=== PATIENT | female | born 1985 | race Caucasian/White ===

== ENCOUNTER 2016-06-21 16:26 | Emergency (ER) | payer SELFPAY ==
[2016-06-21 16:53] VITALS: BP 134/85
--- NOTE | 2016-06-21 17:07 | UC ---
Complaint Female HPI - HPI Summary HPI Summary: complaint of pain with urination that started approx 10 days ago increase in urgency and frequency can't express much urine walking up to urinate constantly during the night started to have lower abdominal pain today-slight achiness today the pain has increased and radited into right flank -intermittent denies fever but has felt some chills taking ibuprofen without relief denies N/V/D,/C, no blood in stool, last BM last night normal LMP- 2 years ago on depo shot - History Of Current Complaint Hx Obtained From: Patient Hx Last Menstrual Period: Depo provera <Mirta Snow - Last Filed: 06/21/16 17:30> - HPI Summary HPI Summary: I was available for consultation. This patient was seen by mid level provider. The patient was not presented, seen, or examined by me. 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 R eye surgery. - Family History Known Family History: Positive: None Negative: Cardiac Disease, Hypertension, Diabetes - Social History Occupation: Employed Full-time Lives: With Family Alcohol Use: Occasionally Substance Use Type: None Smoking Status (MU): Heavy Every Day Tobacco Smoker Type: Cigarettes Amount Used/How Often: 1/2 PPD Length of Time of Smoking/Using Tobacco: 8 years ago Have You Smoked in the Last Year: Yes Household Exposure Type: Cigarettes Cessation Counseling: Patient Advised to Stop - Immunization History Most Recent Influenza Vaccination: 2015/2016 season <Mirta Snow - Last Filed: 06/21/16 17:30> Review of Systems Constitutional: Chills Skin: Negative Eyes: Negative ENT: Negative Respiratory: Negative Cardiovascular: Negative Gastrointestinal: Abdominal Pain Genitourinary: Dysuria, Frequency, Urgency Motor: Negative Neurovascular: Negative Musculoskeletal: Negative Neurological: Negative Psychological: Negative All Other Systems Reviewed And Are Negative: Yes <Mirta Snow - Last Filed: 06/21/16 17:30> Physical Exam Triage Information Reviewed: Yes Appearance: No Pain Distress, Well-Nourished Vital Signs: Initial Vital Signs Temp 98.9 F 06/21/16 16:46 Pulse 81 06/21/16 16:46 Resp 18 06/21/16 16:46 BP 134/85 06/21/16 16:46 Pulse Ox 100 06/21/16 16:46 Vital Signs Reviewed: Yes Eyes: Positive: Conjunctiva Clear ENT: Positive: Pharynx normal, TMs normal Neck: Positive: No Lymphadenopathy Respiratory: Positive: Lungs clear, Normal breath sounds, No respiratory distress, No accessory muscle use Cardiovascular: Positive: RRR, No Murmur, Pulses Normal Abdomen Description: Positive: Nontender, No Organomegaly, Soft, CVA Tenderness (R). Negative: CVA Tenderness (L), Distended, Guarding Bowel Sounds: Positive: Present Musculoskeletal: Positive: No Edema Neurological: Positive: Alert Psychological Exam: Normal Skin Exam: Normal <Mirta Snow - Last Filed: 06/21/16 17:30> Vital Signs: Initial Vital Signs Temp 98.9 F 06/21/16 16:46 Pulse 81 06/21/16 16:46 Resp 18 06/21/16 16:46 BP 134/85 06/21/16 16:46 Pulse Ox 100 06/21/16 16:46 <Donal Krause - Last Filed: 06/23/16 13:08> Complaint Female Dx - Course Course Of Treatment: exam completed-urine culture sent. will treat for UTI/ possible pyleonephritis with cipro. possible kidney stone-explained possibility to pt and when to seek emergent care and she states understanding - Differential Dx/Diagnosis Differential Diagnosis/HQI/PQRI: Ureteral Stone, Urinary Tract Infection Provider Diagnoses: UTI <Mirta Snow - Last Filed: 06/21/16 17:30> Discharge <Mirta Snow - Last Filed: 06/21/16 17:30> <Donal Krause - Last Filed: 06/23/16 13:08> - Discharge Plan Condition: Stable Disposition: HOME Prescriptions: Ciprofloxacin TAB* [Cipro 500 MG TAB*] 500 mg PO BID #20 tab Phenazopyridine TAB* [Pyridium 100 mg TAB*] 200 mdi PO TID #6 tab Patient Education Materials: Urinary Tract Infection in Women (ED) Referrals: Elba Resendiz MD [Primary Care Provider] - Additional Instructions: Start antibiotic and pyridium as directed Increase fluids and rest Take acetaminophen for fever or pain Please review your discharge instructions. There is a trace of blood in your urine and it is possible you may have a kidney stone- if your pain level increases please seek care in the emergency room Your blood pressure is pre-hypertensive reading. Please contact your primary care provider within 1 day -4 weeks for further evaluation.
== END 2016-06-21 17:42 | disposition home or self-care (01) ==
LOC: UCEAST 16:26
DX: N39.0 Urinary tract infection, site not specified (principal); F17.210 Nicotine dependence, cigarettes, uncomplicated; Z71.6 Tobacco abuse counseling; Z85.89 Personal history of malignant neoplasm of other organs and systems; Z88.5 Allergy status to narcotic agent
CPT/HCPCS: 81003; 99212; G0463

== ENCOUNTER 2016-10-24 15:27 | Emergency (ER) | payer SELFPAY ==
--- NOTE | 2016-10-24 15:29 | UC ---
Lower Extremity/Ankle HPI - HPI Summary HPI Summary: 31 year old female presents with complains of severe gorging varicose veins behind her left knee. - History of Current Complaint Stated Complaint: VERICOSE VEIN-LEG PAIN Time Seen by Provider: 10/24/16 15:28 Hx Last Menstrual Period: Depo provera - Allergies/Home Medications Allergies/Adverse Reactions: Allergies Allergy/AdvReac Type Severity Reaction Status Date / Time Codeine Allergy Swelling Verified 08/08/15 15:32 PMH/Surg Hx/FS Hx/Imm Hx Previously Healthy: Yes - Surgical History Surgical History: Yes Surgery Procedure, Year, and Place: 2006 LAPROSCOPY 2008 LT BREAST BIOSPY NEGATIVE. R eye surgery. - Family History Known Family History: Positive: None Negative: Cardiac Disease, Hypertension, Diabetes - Social History Alcohol Use: Occasionally Substance Use Type: None Smoking Status (MU): Heavy Every Day Tobacco Smoker Type: Cigarettes Amount Used/How Often: 1/2 PPD Length of Time of Smoking/Using Tobacco: 8 years ago Have You Smoked in the Last Year: Yes Household Exposure Type: Cigarettes - Immunization History Most Recent Influenza Vaccination: 2015/2016 season Review of Systems Constitutional: Negative Skin: Negative Eyes: Negative ENT: Negative Respiratory: Negative Cardiovascular: Negative Gastrointestinal: Negative Genitourinary: Negative Motor: Negative Neurovascular: Negative Musculoskeletal: Negative, Calf Tenderness - large engorging varicosities behind left knee Neurological: Negative Psychological: Negative All Other Systems Reviewed And Are Negative: Yes Physical Exam Triage Information Reviewed: Yes Eye Exam: Normal ENT Exam: Normal Dental Exam: Normal Neck exam: Normal Neck: Positive: 1 Respiratory Exam: Normal Cardiovascular Exam: Normal Abdominal Exam: Normal Musculoskeletal: Positive: Other: - large engorging varicose veins behind left knee Neurological Exam: Normal Psychological Exam: Normal Skin Exam: Normal Lower Extremity Course/Dx - Course Course Of Treatment: ER - Differential Dx/Diagnosis Provider Diagnoses: ENGORGING VARICOSE VEINS BEHIND LEFT KNEE Discharge - Discharge Plan Condition: Stable Disposition: AGAINST MEDICAL ADVICE Referrals: No Primary Care Phys,NOPCP [Primary Care Provider] -
[2016-10-24 15:52] VITALS: BP 135/80
== END 2016-10-24 15:50 | disposition left against medical advice (07) ==
LOC: UCEAST 15:27
DX: I83.92 Asymptomatic varicose veins of left lower extremity (principal); Z72.0 Tobacco use
CPT/HCPCS: 99212; G0463

== ENCOUNTER 2016-10-24 16:39 | Emergency (ER) | payer SELFPAY ==
--- NOTE | 2016-10-24 18:47 | RAD ---
INDICATION: Pain and swelling. COMPARISON: None TECHNIQUE: Duplex interrogation of the Lowerextremity was performed. FINDINGS: Deep veins: The common femoral, great saphenous, profunda femoris, proximal, mid, and distal deep femoral, popliteal, posterior tibial, and peroneal veins are patent. There is normal compressibility, augmentation, and phasic flow. Superficial veins: There are no findings of superficial thrombophlebitis. Popliteal fossa:There is no evidence of a popliteal cyst. Soft tissues:There are no soft tissue abnormalities. IMPRESSION: Normal examination. No evidence of deep venous thrombosis
--- NOTE | 2016-10-24 21:03 | ED ---
Donaldo Dugan Alok, scribed for Jacob Martinez MD on 10/24/16 at 2102 . Lower Extremity - HPI Summary HPI Summary: 31F presents to the ED with right leg pain/numbness for the last 4 days. Pt also notes a burning sensation from her right foot radiating up through her leg as well as a budging purple vein in her right leg. Pt has been taking ibuprofen to manage pain, 800 mg every [address] Resendiz at [facility] who just retired and pt is seeking new PCP. Pt is allergic to Codeine. - History of Current Complaint Chief Complaint: EDExtremityLower Stated Complaint: VARICOSE VEIN IN LT LEG-SENT F CC Time Seen by Provider: 10/24/16 20:57 Hx Obtained From: Patient Hx Last Menstrual Period: Depo provera Mechanism Of Injury: Unknown Onset of Pain: Days Onset/Duration: Days Severity Initially: Moderate Severity Currently: Moderate Pain Intensity: 10 Pain Scale Used: 0-10 Numeric Timing: Constant Location: Is Discrete @ - leg leg Character Of Pain: Burning Associated Signs And Symptoms: Positive: Other - numbness Alleviating Factor(s): OTC Meds - Allergies/Home Medications Allergies/Adverse Reactions: Allergies Allergy/AdvReac Type Severity Reaction Status Date / Time Codeine Allergy Swelling Verified 08/08/15 15:32 PMH/Surg Hx/FS Hx/Imm Hx Endocrine/Hematology History: Denies: Hx Diabetes, Hx Thyroid Disease Cardiovascular History: Denies: Hx Congestive Heart Failure, Hx Hypertension, Hx Pacemaker/ICD Respiratory History: Denies: Hx Asthma, Hx Chronic Obstructive Pulmonary Disease (COPD) GI History: Denies: Hx Ulcer History: Denies: Hx Renal Disease Sensory History: Denies: Hx Hearing Aid Psychiatric History: Denies: Hx Panic Disorder - Cancer History Cancer Type, Location and Year: Melanoma right eye 2013 - Surgical History Surgery Procedure, Year, and Place: 2007 LAPROSCOPY 2008 LT BREAST BIOSPY NEGATIVE. R eye surgery. - Immunization History Date of Tetanus Vaccine: Unk Date of Influenza Vaccine: None Infectious Disease History: Denies: Hx Clostridium Difficile, Hx Hepatitis, Hx Human Immunodeficiency Virus (HIV), Hx of Known/Suspected MRSA, Hx Shingles, Hx Tuberculosis, Hx Known/ Suspected VRE, Hx Known/Suspected VRSA, History Other Infectious Disease, Traveled Outside the [place] in Last 30 Days - Family History Known Family History: Negative: Cardiac Disease, Hypertension, Diabetes - Social History Occupation: Employed Full-time Lives: With Family Alcohol Use: Occasionally Hx Substance Use: No Substance Use Type: Reports: None Hx Tobacco Use: Yes Smoking Status (MU): Heavy Every Day Tobacco Smoker Type: Cigarettes Amount Used/How Often: 1/2 PPD Length of Time of Smoking/Using Tobacco: 8 years ago Have You Smoked in the Last Year: Yes Review of Systems Negative: Fever Positive: Other - leg pain Positive: Numbness All Other Systems Reviewed And Are Negative: Yes Physical Exam Triage Information Reviewed: Yes Vital Signs On Initial Exam: Initial Vitals Temp Pulse Resp Pulse Ox 98.1 F 89 16 100 10/24/16 17:36 10/24/16 17:36 10/24/16 17:36 10/24/16 17:36 Vital Signs Reviewed: Yes Appearance: Positive: Well-Appearing, No Pain Distress Skin: Positive: Warm Head/Face: Positive: Normal Head/Face Inspection Eyes: Positive: FEI ENT: Positive: Hearing grossly normal Neck: Positive: Supple Respiratory/Lung Sounds: Positive: Breath Sounds Present Cardiovascular: Positive: RRR Abdomen Description: Positive: Nontender, Soft Bowel Sounds: Positive: Present Musculoskeletal: Positive: Strength/ROM Intact, Other - mild swelling lt post knee, no calf tenderness Neurological: Positive: Alert, Oriented to Person Place, Time Psychiatric: Positive: Affect/Mood Appropriate Diagnostics - Vital Signs Vital Signs Temp Pulse Resp BP Pulse Ox 10/24/16 20:05 98.4 F 72 16 116/75 100 10/24/16 17:36 98.1 F 89 16 100 - Laboratory Lab Statement: Any lab studies that have been ordered have been reviewed, and results considered in the medical decision making process. - Additional Comments Diagnostic Additional Comments: Lower extremity vein US - IMPRESSION: Normal examination. No evidence of deep venous thrombosis Re-Evaluation - Re-Evaluation First Eval Comment: results d/w pt Lower Extremity Course/Dx - Diagnoses Provider Diagnoses: Contusion of leg Discharge - Discharge Plan Condition: Stable Disposition: HOME Prescriptions: Cyclobenzaprine TAB* [Flexeril 10 MG TAB*] 10 mg PO TID #14 tab Naproxen [Naprosyn 500 mg] 500 mg PO BID #20 tab Patient Education Materials: Leg Pain (ED) Referrals: [facility] [Outside] No Primary Care Phys,NOPCP [Primary Care Provider] - The documentation as recorded by the Donaldo gallegos Alok accurately reflects the service I personally performed and the decisions made by me, Jacob Martinez MD.
[2016-10-24 21:16] VITALS: BP 117/89
== END 2016-10-24 21:32 | disposition home or self-care (01) ==
LOC: ED 16:39
DX: S80.11XA Contusion of right lower leg, initial encounter (principal); Z88.5 Allergy status to narcotic agent; X58.XXXA Exposure to other specified factors, initial encounter; Y92.9 Unspecified place or not applicable; F17.210 Nicotine dependence, cigarettes, uncomplicated
CPT/HCPCS: 99282

== ENCOUNTER 2018-07-19 14:09 | Emergency (ER) | payer MEDICAID ==
[2018-07-19] MEDS ORDERED: Morphine 4 MG/ML VIAL (1 ml) 4 MG/ML VIAL IV ONE (14:30)
[2018-07-19] MEDS ORDERED: Ondansetron INJ* 2 MG/ML VIAL IV ONE (14:30)
--- NOTE | 2018-07-19 14:33 | ED ---
Abdominal Pain/Female - HPI Summary HPI Summary: 32 year old F presenting to [facility] complains of RLQ and RUQ abdominal pain since 5 days ago, worse since today. The patient rates the pain 10/10 in severity. Symptoms aggravated by eating, movement, standing, sitting. Symptoms alleviated by nothing. Patient reports nausea, vomiting. Patient reports fever for 2 days, starting 4 days ago, but has since resolved. Patient denies vaginal discharge, hematuria. She denies abdominal surgical hx. - History of Current Complaint Chief Complaint: EDAbdPain Stated Complaint: RIGHT SIDE PAIN/NAUSEA FOR 4 DAYS PER PT Time Seen by Provider: 07/19/18 14:09 Hx Obtained From: Patient Hx Last Menstrual Period: Depo provera Onset/Duration: Lasting Days - 5, Still Present, Worse Since - today Timing: Constant Severity Currently: Severe Pain Intensity: 10 Pain Scale Used: 0-10 Numeric Location: Discrete At: RUQ, Discrete At: RLQ Aggravating Factor(s): Food, Movement, Other: - walking, sitting Alleviating Factor(s): Nothing Associated Signs and Symptoms: Positive: Negative - vaginal discharge, hematuria , Fever - resolved, Nausea, Vomiting Allergies/Adverse Reactions: Allergies Allergy/AdvReac Type Severity Reaction Status Date / Time codeine Allergy Swelling Verified 07/19/18 14:22 PMH/Surg Hx/FS Hx/Imm Hx Previously Healthy: No Endocrine/Hematology History: Denies: Hx Diabetes, Hx Thyroid Disease Cardiovascular History: Denies: Hx Congestive Heart Failure, Hx Hypertension, Hx Pacemaker/ICD Respiratory History: Denies: Hx Asthma, Hx Chronic Obstructive Pulmonary Disease (COPD) GI History: Denies: Hx Ulcer History: Denies: Hx Renal Disease Sensory History: Denies: Hx Hearing Aid Psychiatric History: Denies: Hx Panic Disorder - Cancer History Cancer Type, Location and Year: Melanoma right eye 2013 - Surgical History Surgery Procedure, Year, and Place: 2007 LAPROSCOPY 2008 LT BREAST BIOSPY NEGATIVE. R eye surgery. - Immunization History Date of Tetanus Vaccine: Unk Date of Influenza Vaccine: None Infectious Disease History: No Infectious Disease History: Denies: Hx Clostridium Difficile, Hx Hepatitis, Hx Human Immunodeficiency Virus (HIV), Hx of Known/Suspected MRSA, Hx Shingles, Hx Tuberculosis, Hx Known/ Suspected VRE, Hx Known/Suspected VRSA, History Other Infectious Disease, Traveled Outside the [place] in Last 30 Days - Family History Known Family History: Negative: Cardiac Disease, Hypertension, Diabetes - Social History Alcohol Use: Occasionally Hx Substance Use: No Substance Use Type: Reports: None Hx Tobacco Use: Yes Smoking Status (MU): Heavy Every Day Tobacco Smoker Type: Cigarettes Amount Used/How Often: 1/2 PPD Length of Time of Smoking/Using Tobacco: 8 years ago Have You Smoked in the Last Year: Yes Review of Systems Positive: Fever - since resolved Positive: Abdominal Pain - RLQ, RUQ, Vomiting, Nausea Negative: discharge, hematuria All Other Systems Reviewed And Are Negative: Yes Physical Exam - Summary Physical Exam Summary: Appearance: Well appearing, no pain distress Skin: warm, dry, reflects adequate perfusion Head/face: normal Eyes: EOMI, FEI ENT: normal Neck: supple, non-tender Respiratory: CTA, breath sounds present Cardiovascular: RRR, pulses symmetrical Abdomen: RLQ and RUQ tenderness Musculoskeletal: normal, strength/ROM intact Neuro: normal, sensory motor intact, A&Ox3 Triage Information Reviewed: Yes Vital Signs On Initial Exam: Initial Vitals Temp Pulse Resp BP Pulse Ox 97.2 F 83 16 104/90 98 07/19/18 14:18 07/19/18 14:18 07/19/18 14:18 07/19/18 14:18 07/19/18 14:18 Vital Signs Reviewed: Yes Diagnostics - Vital Signs Vital Signs Temp Pulse Resp BP Pulse Ox 07/19/18 14:18 97.2 F 83 16 104/90 98 - Laboratory Result Diagrams: 07/19/18 14:42 07/19/18 14:42 Lab Statement: Any lab studies that have been ordered have been reviewed, and results considered in the medical decision making process. - CT Abd/Pel CT Interpretation Completed By: Radiologist Summary of CT Findings: 1. NORMAL APPENDIX. 2. FATTY INFILTRATION OF LIVER. 3. PROMINENCE OF THE PELVIC VASCULATURE. WHILE NONSPECIFIC, THIS CAN BE ASSOCIATED WITH PELVIC CONGESTION SYNDROME IN THE CORRECT CLINICAL SETTING. ED physician has reviewed this report. - Ultrasound No standard instances Ultrasound Interpretation Completed By: Radiologist Summary of Ultrasound Findings: No evidence of cholelithiasis or biliary duct dilatation is noted. ED physician has reviewed this report. Re-Evaluation - Re-Evaluation First Eval Re-Evaluation Time: 17:57 Change: Improved Comment: Patient feels better and would like to go home Abdominal Pain Fem Course/Dx - Course Course Of Treatment: 32 year old F presenting to [facility] complains of RLQ and RUQ abdominal pain, nausea, vomiting since 5 days ago, worse since today. Bloodwork /UA obatined. US Gallbladder showed No evidence of cholelithiasis or biliary duct dilatation is noted. CT Abd/Pel showed 1. NORMAL APPENDIX. 2. FATTY INFILTRATION OF LIVER. 3. PROMINENCE OF THE PELVIC VASCULATURE. WHILE NONSPECIFIC, THIS CAN BE ASSOCIATED WITH PELVIC CONGESTION SYNDROME IN THE CORRECT CLINICAL SETTING. In ED course, patient was given morphine, Zofran, and IV fluids. Patient feels better and would like to go home. Patient will be discharged home with prescription for Motrin and follow up from primary care provider in 3 days. Patient was instructed to return to ED for new or worsening symptoms. Patient understands and is agreeable to discharge plan. - Diagnoses Differential Diagnosis: Positive: Constipation, Diverticulitis, Pancreatitis, Renal Colic Provider Diagnoses: Nonspecific abdominal pain Discharge - Sign-Out/Discharge Documenting (check all that apply): Patient Departure - Discharge Patient Received Moderate/Deep Sedation with Procedure: No - Discharge Plan Condition: Stable Disposition: HOME Prescriptions: Ibuprofen TAB* [Motrin TAB* 600 MG] 600 mg PO Q8H PRN #15 tab MDD 3 PRN Reason: Pain Patient Education Materials: Acute Abdominal Pain (ED), Abdominal Pain (ED) Referrals: [facility] [place] [Outside] - 3 Days Additional Instructions: Arrange a primary care provider to have a follow up appointment in 3 days. RETURN TO EMERGENCY DEPARTMENT FOR NEW OR WORSENING SYMPTOMS. - Billing Disposition and Condition Condition: STABLE Disposition: Home - Attestation Statements Document Initiated by Garett: Yes Documenting Scribe: Gema Blake Provider For Whom Garett is Documenting (Include Credential): Salvador Interiano MD Scribe Attestation: Gema Dugan, scribed for Salvador Interiano MD on 07/19/18 at 1852. Scribe Documentation Reviewed: Yes Provider Attestation: The documentation as recorded by the Gema gallegos accurately reflects the service I personally performed and the decisions made by me, Salvador Interiano MD Status of Scribe Document: Viewed
[2018-07-19] MEDS ORDERED: NS 0.9% 1000 ML** 1,000 ML IV SCH (14:45)
[2018-07-19 14:50] LABS: ABS Basophils 0.1 10^3/ul (0-0.2); ABS Eosinophils 0.1 10^3/ul (0-0.6); ABS Lymphocytes 2.7 10^3/ul (1.0-4.8); ABS Monocytes 0.7 10^3/ul (0-0.8); ABS Neutrophils 6.8 10^3/ul (1.5-7.7); ABS Nucleated RBC 0 10^3/ul; Eosinophil % 1.4 %; Hematocrit 40 % (33-41); Hemoglobin 13.3 g/dL (12.0-16.0); Lymphocyte % 25.8 %; Mean Corpuscular HGB Conc 34 g/dL (31-36); Mean Corpuscular Hemoglobin 29 pg (27-31); Mean Corpuscular Volume 86 fL (80-97); Mean Platelet Volume 7.7 fL (7.4-10.4); Nucleated Red Blood Cells % 0.1; Platelet Count 214 10^3/uL (150-450); Red Cell Distribution Width 13 % (10.5-15); White Blood Count 10.4 10^3/uL (3.5-10.8)
[2018-07-19 15:13] LABS: Activated Partial Thrombo Time 29.5 seconds (26.0-36.3); INR 0.99 (0.82-1.09)
[2018-07-19 15:18] LABS: Albumin 4.1 g/dL (3.2-5.2); BUN/Creatinine Ratio 22.4 (8-20); Calcium 8.6 mg/dL (8.6-10.3); EGFR African American 124.2 (>60); EGFR Non-African American 102.7 (>60); Globulin 2.1 g/dL (2-4); Potassium 4.1 mmol/L (3.5-5.0); Total Protein 6.2 g/dL (6.4-8.9)
[2018-07-19 15:19] LABS: C Reactive Protein 11.47 mg/L (<8.01); Total Bilirubin 0.7 mg/dL (0.2-1.0)
[2018-07-19] MEDS ORDERED: Iohexol 300* (CONTRAST) 10 ML SDV IV ONE (16:22)
[2018-07-19 16:56] LABS: Urine Appearance Cloudy; Urine Bilirubin Negative (Negative); Urine Blood Negative (Negative); Urine Color Yellow; Urine Glucose Negative (Negative); Urine Ketones Negative (Negative); Urine Nitrite Negative (Negative); Urine Protein Negative (Negative); Urine Specific Gravity 1.005 (1.010-1.030); Urine Urobilinogen Negative (Negative)
[2018-07-19 18:38] VITALS: BP 125/81
== END 2018-07-19 18:37 | disposition home or self-care (01) ==
LOC: ED 14:09
DX: R10.9 Unspecified abdominal pain (principal); F17.210 Nicotine dependence, cigarettes, uncomplicated; K76.0 Fatty (change of) liver, not elsewhere classified; Z88.5 Allergy status to narcotic agent; Z85.820 Personal history of malignant melanoma of skin
CPT/HCPCS: 36415; 74177; 76705; 80053; 81003; 83605; 83690; 84484; 85025; 85610; 85730; 86140; 96361; 96374; 96375; 99283; J2270; J2405; Q9967

== ENCOUNTER 2018-09-23 11:11 | Emergency (ER) | payer SELFPAY ==
[2018-09-23] MEDS ORDERED: Tetracaine 0.5% OPTH.SOL 4 ML* 1 DROP BTL RIGHT EYE ONE (11:31)
[2018-09-23] MEDS ORDERED: Fluorescein Sodium TOPICAL* 1 MG TEST STRIP OPHTHALMIC ONE (11:31)
[2018-09-23] MEDS ORDERED: Acetaminophen TAB* 325 MG PO ONE (11:32)
[2018-09-23] MEDS ORDERED: Fluorescein Sodium TOPICAL* 1 MG TEST STRIP ONE (11:52)
[2018-09-23] MEDS ORDERED: Ciprofloxacin 0.3% OPTH.SOL* BTL RIGHT EYE ONE ×2 (12:04→12:49)
[2018-09-23 13:02] VITALS: BP 116/98
--- NOTE | 2018-09-23 14:30 | ED ---
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 She was attempting to dislodge her contact for several hours to no avail. Her eye began to become very red and watery. She states she left the contact in overnight and this morning she was unable to open her eye. She endorses decreased vision in the eye and states she sees "silhouettes." She states she has been unable to open her eye since this morning. She is concerned the contact is still in the eye. She is a patient of [facility] [place], Dr. Bolanos. - History of Current Complaint Chief Complaint: EDEyeProblem Time Seen by Provider: 09/23/18 11:25 Hx Obtained From: Patient Onset/Duration: Sudden Onset Severity: Severe Associated Signs And Symptoms: Positive: Negative - Epiglottits Risk Factors Epiglottis Risk Factors: Negative - Allergies/Home Medications Allergies/Adverse Reactions: Allergies Allergy/AdvReac Type Severity Reaction Status Date / Time codeine Allergy Swelling Verified 09/23/18 11:29 PMH/Surg Hx/FS Hx/Imm Hx Previously Healthy: Yes Endocrine/Hematology History: Denies: Hx Diabetes, Hx Thyroid Disease Cardiovascular History: Denies: Hx Congestive Heart Failure, Hx Hypertension, Hx Pacemaker/ICD Respiratory History: Denies: Hx Asthma, Hx Chronic Obstructive Pulmonary Disease (COPD) GI History: Denies: Hx Ulcer History: Denies: Hx Renal Disease Sensory History: Reports: Hx Contacts or Glasses Denies: Hx Hearing Aid Opthamlomology History: Reports: Hx Contacts or Glasses Psychiatric History: Denies: Hx Panic Disorder - Cancer History Cancer Type, Location and Year: Melanoma right eye 2013 - Surgical History Surgery Procedure, Year, and Place: 2007 LAPROSCOPY 2008 LT BREAST BIOSPY NEGATIVE. R eye surgery. - Immunization History Date of Tetanus Vaccine: Unk Date of Influenza Vaccine: None Hx Pertussis Vaccination: No Immunizations Up to Date: Yes Infectious Disease History: No Infectious Disease History: Denies: Hx Clostridium Difficile, Hx Hepatitis, Hx Human Immunodeficiency Virus (HIV), Hx of Known/Suspected MRSA, Hx Shingles, Hx Tuberculosis, Hx Known/ Suspected VRE, Hx Known/Suspected VRSA, History Other Infectious Disease, Traveled Outside the [place] in Last 30 Days - Family History Known Family History: Positive: None Negative: Cardiac Disease, Hypertension, Diabetes - Social History Occupation: Unemployed Lives: With Family Alcohol Use: Rare Hx Substance Use: No Substance Use Type: Reports: None Hx Tobacco Use: Yes Smoking Status (MU): Heavy Every Day Tobacco Smoker Type: Cigarettes Amount Used/How Often: 1/2 PPD Length of Time of Smoking/Using Tobacco: 8 years ago Have You Smoked in the Last Year: Yes Review of Systems Negative: Fever, Chills, Fatigue, Skin Diaphoresis Positive: Photophobia, Blurred Vision, Drainage, Erythema Negative: Palpitations, Chest Pain Negative: Shortness Of Breath, Cough Genitourinary: Negative Positive: no symptoms reported, see HPI Negative: Arthralgia, Myalgia Skin: Negative Neurological: Negative All Other Systems Reviewed And Are Negative: Yes Physical Exam Triage Information Reviewed: Yes Vital Signs On Initial Exam: Initial Vitals Temp Pulse Resp BP Pulse Ox 99.6 F 107 18 135/99 99 09/23/18 11:13 09/23/18 11:13 09/23/18 11:13 09/23/18 11:13 09/23/18 11:13 Vital Signs Reviewed: Yes Appearance: Positive: Well-Appearing, Well-Nourished Skin: Positive: Warm, Skin Color Reflects Adequate Perfusion Head/Face: Positive: Normal Head/Face Inspection Eyes: Positive: Conjunctiva Inflammed, Discharge - clear discharge, Other: - conjunctival injection with significant tearing/no signs of ocular trauma, swelling or cellulitis surrounding Neck: Positive: Supple, Nontender, No Lymphadenopathy Respiratory/Lung Sounds: Positive: Clear to Auscultation, Breath Sounds Present Cardiovascular: Positive: RRR, Pulses are Symmetrical in both Upper and Lower Extremities Musculoskeletal: Positive: Normal, Strength/ROM Intact Neurological: Positive: Alert, Oriented to Person Place, Time Psychiatric: Positive: Affect/Mood Appropriate AVPU Assessment: Alert Diagnostics - Vital Signs Vital Signs Temp Pulse Resp BP Pulse Ox 09/23/18 13:00 99.4 F 91 18 116/98 100 09/23/18 11:13 99.6 F 107 18 135/99 99 - Laboratory Lab Statement: Any lab studies that have been ordered have been reviewed, and results considered in the medical decision making process. EENT Course/Dx - Course Course Of Treatment: Hx of melanoma in the R eye. C/o R eye pain, erythema, tearing after attempting at contact removal. Patient evaluated for conjunctivitis vs FB vs abrasion vs. keratitis vs ocular trauma or periocular trauma. She feels there is a FB in the eye. After scanning the eye with fluorosceine uptake using tetracaine analgesic, the upper and lower lids retracted to allow for assessment of FB under the eye lids. No obvious perforation with teardrop pupil, vitreous extrusion, or protruding intraocular foreign body. No orbital compartment syndrome, hyphema, subconjunctival hemorrhage, evidence of increased intraorbital pressure or evidence of FB/ contact lens. Patient is made aware that provider is unable to see a FB but there appears to be small abrasions on uptake. Due to pain and possible injury to the eye with PE showing conjuntival erythema, will treat for abrasion seen on fluoroscein with ciprofloxacin drops (patient is contact lens wearer/cover pseudomonas) and pain management with tramadol. Patient is encouraged to follow up with opthomology immediately tomorrow. Patient agrees to plan and is discharged to home. - Differential Diagnoses Differential Diagnoses: Conjunctivitis, Corneal Abrasion, Penetrating Injury, Periorbital/Orbital Cellulitis, Uveitis - Diagnoses Provider Diagnoses: Corneal abrasion Discharge - Sign-Out/Discharge Documenting (check all that apply): Patient Departure Patient Received Moderate/Deep Sedation with Procedure: No - Discharge Plan Condition: Stable Disposition: HOME Prescriptions: traMADol TAB* [Ultram*] 50 mg PO Q8H PRN #6 tab MDD 3 PRN Reason: Pain Patient Education Materials: Corneal Abrasion (ED) Referrals: No Primary Care Phys,NOPCP [Primary Care Provider] - Kevin Bolanos MD [Medical Doctor] - 1 Day (Corneal abrasion/hx of melanoma/ decreased vision) Additional Instructions: You have a corneal abrasion from attempting to dislodge the contact. There was no contact visualized on today's exam Ciprofloxacin: Instill 1 to 2 drops into the conjunctival sac every 2 hours while awake for 2 days and 1 to 2 drops every 4 hours while awake for the next 5 days Tramadol up to three times daily for pain Please see Dr. Bolanos TOMORROW! Call tomorrow to make an appt immediately. If you become worse, return to the ED immediately For and - Billing Disposition and Condition Condition: STABLE Disposition: Home
== END 2018-09-23 13:00 | disposition home or self-care (01) ==
LOC: ED 11:11
DX: H18.821 Corneal disorder due to contact lens, right eye (principal); F17.210 Nicotine dependence, cigarettes, uncomplicated
CPT/HCPCS: 99282; A9270-GY